=== PATIENT | female | born 1995 | race African-American/Black ===

== ENCOUNTER → 2016-10-16 | Outpatient (CLI) | payer OTHER ==
--- NOTE | 2016-10-16 14:10 | REP ---
Clinical: Dating and viability. Technique: Transabdominal first trimester obstetrical ultrasound with color Doppler evaluation. Findings: Single live early intrauterine is appreciated. Gestational sac with yolk sac and pole identified. [place]-rump length of 10 mm corresponds to 7 weeks gestational age with estimated date of delivery 06/04/2017. heart rate equals 150 beats per minute. No gross abnormalities are identified. Impression: Single live early intrauterine at 7 weeks gestational age. Complete anatomical assessment should be performed and 19-20 weeks. Signed by Thomas Martins MD 10/16/2016 02:01 P
== END ==
LOC: M RAD 13:37
PROVIDERS: ATTEND Registered Nurse
DX: Z32.01 Encounter for pregnancy test, result positive (principal); Z36 Encounter for antenatal screening of mother; Z3A.01 Less than 8 weeks gestation of pregnancy

== ENCOUNTER 2016-11-04 10:33 | Emergency (ER) | payer OTHER ==
[~2016-11-04] VITALS: Ht 165.1 cm; Wt 61.2 kg
[2016-11-04] MEDS ORDERED: ACETAMINOPHEN-COD (10:42)
[2016-11-04] MEDS ORDERED: PROM25TA (10:42)
[2016-11-04] MEDS ORDERED: PERCOCET 5MG/325MG TAB PO ONE (12:00)
[2016-11-04] MEDS ORDERED: ONDANSETRON 4 MG ORAL DISINTEGRATING TAB (S0181) PO ONE (12:00)
[2016-11-04 12:29] LABS: BASO % 0.3 % (0.0-1.0); EOS # 0.3 K/mm3 (0.0-0.50); EOS % 3.4 % (0.0-3.0); LARGE UNSTAINED CELL # 0.1 K/mm3 (0.0-0.4); LARGE UNSTAINED CELL % 0.7 % (0.0-4.0); LYMPH # 1.3 K/mm3 (1.5-6.5); LYMPH % 13.2 % (24.0-44.0); MEAN CORPUSCULAR HEMOGLOBIN 31.1 pg (27.0-33.0); MEAN CORPUSCULAR HGB CONC 35.6 g/dl (32.0-36.5); MEAN CORPUSCULAR VOLUME 87.4 fl (80.0-96.0); MONO # 0.3 K/mm3 (0.0-0.8); NEUTROPHILS # 7.7 K/mm3 (1.8-7.7); NEUTROPHILS % 79.4 % (36.0-66.0); PLATELET COUNT, AUTOMATED 182 k/mm3 (150-450); RED CELL DISTRIBUTION WIDTH 11.8 % (11.5-14.5); WHITE BLOOD COUNT 9.7 K/mm3 (4.0-10.0)
[2016-11-04 13:32] VITALS: BP 99/64
== END 2016-11-04 13:41 | disposition home or self-care (01) ==
LOC: M ED 11:31
DX: O04.80 (Induced) termination of pregnancy with unspecified complications (principal); N93.9 Abnormal uterine and vaginal bleeding, unspecified; N83.292 Other ovarian cyst, left side; Z79.899 Other long term (current) drug therapy